=== PATIENT | female | born 1970 | race African-American/Black ===

== ENCOUNTER 2021-10-07 10:30 | Emergency (ER) | payer OTHER ==
[2021-10-07 10:44] VITALS: BP 135/94; PULSE 107; TEMP 98.7; BMI 36.6
[2021-10-07] MEDS ORDERED: ALBUTEROL SO4 2.5/IPRATROPIUM 0.5 INH SOL 3 ML VIAL.NEB. NEB SCH (12:15)
[2021-10-07] MEDS ORDERED: ACETAMINOPHEN 1000 MG/100 ML VIAL IVPB ONE (13:04)
[2021-10-07] MEDS ORDERED: SODIUM CHLORIDE 1,000 ML IV STA (13:04)
[2021-10-07 13:21] LABS: BASO % 0.4 % (0-2.0); HEMATOCRIT 40.3 % (32.4-45.2); HEMOGLOBIN 13.4 GM/dL (10.7-15.3); MCH 30.2 pg (25.7-33.7); MCHC 33.3 g/dl (32.0-36.0); MEAN CELL VOLUME 90.7 fl (80-96); MEAN PLT VOLUME 9.5 fl (7.5-11.1); MONO % 13.2 % (3.8-10.2); NEUT % 39.4 % (42.8-82.8); PLATELET COUNT 214 10^3/uL (134-434); RBC 4.44 M/mm3 (3.60-5.2); RDW 13.3 % (11.6-15.6); WHITE BLOOD COUNT 2.3 K/mm3 (4.0-10.0)
[2021-10-07 13:27] LABS: INR 1.2 (0.83-1.09); PROTHROMBIN TIME (PATIENT) 14.1 SEC (9.7-13.0)
[2021-10-07] MEDS ORDERED: ACETAMINOPHEN INJECTION 100 ML IVPB ONE (13:29)
[2021-10-07 13:30] LABS: ACTIVATED PTT 33.3 SECONDS (25.2-36.5)
[2021-10-07 13:44] LABS: CHLORIDE 101 mmol/L (98-107); SODIUM 135 mmol/L (136-145)
[2021-10-07 13:46] LABS: ANION GAP 6 MMOL/L (8-16); BLOOD UREA NITROGEN 10.4 mg/dL (7-18); CALCIUM 8.6 mg/dL (8.5-10.1); CO2 28 mmol/L (21-32); GLUCOSE,RANDOM 86 mg/dL (74-106)
[2021-10-07 13:49] LABS: CREATININE 0.9 mg/dL (0.55-1.3); SGOT/AST 31 U/L (15-37); SGPT/ALT 18 U/L (13-61)
[2021-10-07 13:51] LABS: BILIRUBIN,TOTAL 0.7 mg/dL (0.2-1); TOT PROT 7.6 g/dl (6.4-8.2)
[2021-10-07 13:52] LABS: ALK PHOS 38 U/L (45-117)
[2021-10-07 14:26] LABS: ALBUMIN 3.7 g/dl (3.4-5.0)
== END 2021-10-07 16:08 | disposition home or self-care (01) ==
LOC: JER 10:30
PROC: 3E033GC Introduction of Other Therapeutic Substance into Peripheral Vein, Percutaneous Approach (ICD-10-PCS; principal; 2021-10-07)
DX: B34.9 Viral infection, unspecified (principal)
CPT/HCPCS: 36415; 71045-TC-FY; 80053; 82550; 82553; 82728; 84484; 85025; 85610; 85730; 86140; 87804; 93005; 93010; 99285-25; C9803; J0131; U0003; U0005

== ENCOUNTER 2022-07-09 04:13 | Day surgery (SDC) | payer OTHER ==
[2022-07-07 15:08] VITALS: BMI 36.6
[2022-07-09 10:37] VITALS: BP 130/66; PULSE 68; RESP 18; TEMP 97.3
== END 2022-07-09 11:07 | disposition home or self-care (01) ==
LOC: JASU-ENDO 04:13
PROVIDERS: ATTEND Internal Medicine Gastroenterology
PROC: 0DBP8ZX Excision of Rectum, Via Natural or Artificial Opening Endoscopic, Diagnostic (ICD-10-PCS; 2022-07-09)
PROC: 0DBH8ZX Excision of Cecum, Via Natural or Artificial Opening Endoscopic, Diagnostic (ICD-10-PCS; principal; 2022-07-09 09:45)
DX: Z12.11 Encounter for screening for malignant neoplasm of colon (principal); K57.30 Diverticulosis of large intestine without perforation or abscess without bleeding; K62.1 Rectal polyp; D12.0 Benign neoplasm of cecum; K64.8 Other hemorrhoids; K63.89 Other specified diseases of intestine
CPT/HCPCS: 88305-TC